=== PATIENT | male | born 1990 | race Caucasian/White ===

== ENCOUNTER 2023-02-14 10:41 | Emergency (ER) | payer BC, OTHER ==
[~2023-02-14] VITALS: Ht 177.8 cm; Wt 84.3 kg
[2023-02-14] MEDS ORDERED: CYCLOBENZAPRINE 10MG TABLET PO ONE (12:10)
[2023-02-14] MEDS ORDERED: ACETAMINOPHEN 500 MG TAB PO ONE (12:10)
[2023-02-14] MEDS ORDERED: traMADol 50 MG TAB PO ONE (13:35)
[2023-02-14 14:06] VITALS: BP 129/87
== END 2023-02-14 14:08 | disposition home or self-care (01) ==
LOC: M ED 10:41
DX: M51.36 Other intervertebral disc degeneration, lumbar region (principal); N50.9 Disorder of male genital organs, unspecified; F17.220 Nicotine dependence, chewing tobacco, uncomplicated

== ENCOUNTER 2023-05-13 18:45 | Observation (INO) | payer OTHER ==
[~2023-05-13] VITALS: Ht 177.8 cm; Wt 82.4 kg
[2023-05-13] MEDS ORDERED: DOXY-444 PO (18:59)
[2023-05-13 21:01] LABS: BASO # 0.1 10^3/uL (0.0-0.2); BASO % 1.2 % (0.0-1.0); EOS # 0.4 10^3/uL (0.0-0.5); EOS % 4.6 % (0.0-3.0); HEMATOCRIT 44.8 % (42.0-52.0); HEMOGLOBIN 15.1 g/dl (13.5-17.5); LYMPH # 2.5 10^3/uL (1.5-5.0); LYMPH % 28.2 % (24.0-44.0); MEAN CORPUSCULAR HEMOGLOBIN 28.5 pg (27.0-33.0); MEAN CORPUSCULAR HGB CONC 33.7 g/dl (32.0-36.5); MEAN CORPUSCULAR VOLUME 84.5 fl (80.0-96.0); MONO # 0.6 10^3/uL (0.0-0.8); MONO % 6.8 % (2.0-8.0); NEUTROPHILS # 5.2 10^3/uL (1.5-8.5); PLATELET COUNT, AUTOMATED 363 10^3/uL (150-450); WHITE BLOOD COUNT 8.8 10^3/uL (4.0-10.0)
[2023-05-13 21:20] LABS: ERYTHROCYTE SEDIMENTATION RATE 9 mm/hr (0-15)
[2023-05-13 21:23] LABS: BLOOD UREA NITROGEN 17 MG/DL (9-23); CALCIUM LEVEL 9.9 MG/DL (8.5-10.1); CARBON DIOXIDE LEVEL 28 MMOL/L (20-31); CHLORIDE LEVEL 105 MMOL/L (98-107); CREATININE FOR GFR 1.01 MG/DL (0.70-1.30); GLOMERULAR FILTRATION RATE > 60.0 (>60); GLUCOSE, FASTING 93 MG/DL (60-100); POTASSIUM SERUM 4.3 MMOL/L (3.5-5.1); SODIUM LEVEL 141 MMOL/L (136-145)
[2023-05-13] MEDS ORDERED: CLINDAMYCIN 600 MG in IV 1 EA IV ONE (22:50)
[2023-05-13] MEDS ORDERED: HOME MED LIST COMPLETE! XX SCH (22:55)
[2023-05-13] MEDS ORDERED: DOXY100C3 PO (22:55)
[2023-05-13 23:46] LABS: RSV AMPLIFICATION NEGATIVE (NEGATIVE)
[2023-05-14] MEDS ORDERED: ACETAMINOPHEN TAB 650MG DOSE (2X325MG) PO PRN (00:50)
[2023-05-14 01:15] VITALS: BP 115/57; TEMP 96.8; O2SAT 97
[2023-05-14] MEDS: CLINDAMYCIN 600 MG in IV 1 EA IV SCH ×2 (05:36→10:20)
[2023-05-14 05:53] VITALS: BP 109/57; TEMP 97.2; O2SAT 96
[2023-05-14] MEDS ORDERED: DOXYCYCLINE HYCLATE 100MG TABLET PO SCH (09:00)
[2023-05-14] MEDS ORDERED: FLUC150T9 PO (10:46)
[2023-05-14] MEDS ORDERED: CLOT1CRE56 TOP (10:46)
[2023-05-14] MEDS ORDERED: FLUCONAZOLE 50MG TABLET PO ONE (12:00)
[2023-05-15] MEDS ORDERED: FLUCONAZOLE 50MG TABLET PO SCH (09:00)
== END 2023-05-14 11:47 | disposition home or self-care (01) ==
LOC: M ED 18:45 → M ED INP 18:46 → M MS4PR 05-14 01:10
PROVIDERS: ADMIT Internal Medicine; ATTEND Internal Medicine Nephrology
DX: L03.115 Cellulitis of right lower limb (principal); B35.4 Tinea corporis; Z85.47 Personal history of malignant neoplasm of testis; Z90.79 Acquired absence of other genital organ(s); R59.0 Localized enlarged lymph nodes; Z80.43 Family history of malignant neoplasm of testis; Z79.2 Long term (current) use of antibiotics; Z79.899 Other long term (current) drug therapy; F17.290 Nicotine dependence, other tobacco product, uncomplicated
CPT/HCPCS: 80048; 83605; 85025; 85652; 86140; 86618; 87040; 87631; 96365; 96376; 99284; J0737